=== PATIENT | male | born 1995 | race Caucasian/White ===

== ENCOUNTER 2016-08-14 07:29 | Day surgery (SDC) | payer OTHER ==
[~2016-08-14 07:29] MED LIST: ACETAMINOPHEN 500 MG TAB PO ONE; BUPIVACAINE/EPI 0.25% 30 ML SDV ONE; EPINEPHrine 30 MG/30 ML MDV ONE; OXYCODONE/APAP 5/325 TAB PO PRN; PREGABALIN 75 MG CAP PO ONE; ceFAZolin 2 GM/DEXTROSE 100 ML IV ONE
[2016-08-14] MEDS ORDERED: PREGABALIN 50 MG CAP ONE (08:22)
[2016-08-14] MEDS ORDERED: ACETAMINOPHEN 500 MG TAB ONE (08:22)
[2016-08-14] MEDS ORDERED: PROPOFOL/EMULSION 500 MG/50 ML BOTTLE IV ONE ×3 (09:21→12:30)
[2016-08-14] MEDS ORDERED: DEXAMETHASONE 4 MG/ML VIAL ONE (09:21)
[2016-08-14] MEDS ORDERED: ROCURONIUM 50 MG/5 ML VIAL ONE (09:21)
[2016-08-14] MEDS ORDERED: fentaNYL 250 MCG/5 ML INJ ONE (09:21)
[2016-08-14] MEDS ORDERED: ONDANSETRON 4 MG/2 ML VIAL ONE (09:21)
[2016-08-14] MEDS ORDERED: PROPOFOL 200 MG/20 ML VIAL ONE (09:21)
[2016-08-14] MEDS ORDERED: MIDAZOLAM 2 MG/2 ML VIAL ONE (10:41)
[2016-08-14] MEDS ORDERED: ROCURONIUM 100 MG/10 ML VIAL ONE (11:05)
[2016-08-14] MEDS ORDERED: SUGAMMADEX SODIUM 200 MG/2 ML VIAL IVP ONE (13:19)
--- NOTE | 2016-08-14 13:45 | DX ---
Intraoperative Fluoroscopy History: Intraoperative arthroscopy Fluoroscopy time = 10.5 seconds Fluoroscopy dose = 5.23 mGy Findings : 3 spot films demonstrate a needle overlying the right femoral neck followed by 2 films dem onstrating the scope overlying the lateral right femoral head. The right hip is in normal location. Impression: Right hip arthroscopy.
[2016-08-14] MEDS ORDERED: NALOXONE HCL 0.4 MG/ML INJ ONE (13:52)
[2016-08-14] MEDS ORDERED: OXYCODONE/APAP 5/325 TAB ONE (14:43)
== END 2016-08-14 16:10 | disposition home or self-care (01) ==
LOC: FSGY 07:29
PROVIDERS: ATTEND Orthopaedic Surgery Sports Medicine
PROC: 0SQ94ZZ Repair Right Hip Joint, Percutaneous Endoscopic Approach (ICD-10-PCS; principal; 2016-08-14 09:30)
DX: M25.851 Other specified joint disorders, right hip (principal); Q65.89 Other specified congenital deformities of hip; M16.11 Unilateral primary osteoarthritis, right hip; M25.551 Pain in right hip
CPT/HCPCS: 29914; 29916; 76001; C1769; C1713; J0690; J1100; J2250; J2310; J2405; J2704; J3010

== ENCOUNTER 2016-08-20 10:45 | Inpatient (IN) | payer OTHER ==
[~2016-08-20 10:45] MED LIST changes: -BUPIVACAINE/EPI 0.25% 30 ML SDV ONE; -EPINEPHrine 30 MG/30 ML MDV ONE; -OXYCODONE/APAP 5/325 TAB PO PRN; +PREGABALIN 150 MG CAP PO ONE; -PREGABALIN 75 MG CAP PO ONE; +TRANEXAMIC ACID 1,000 MG/NS 50 ML *IV IV ONE
[2016-08-20] MEDS ORDERED: LR 1,000 ML IV ONE (11:54)
[2016-08-20] MEDS ORDERED: LIDOCAINE 1% 5 ML SDV ID PRN (11:54)
[2016-08-20] MEDS ORDERED: ACETAMINOPHEN 500 MG TAB ONE (11:56)
[2016-08-20] MEDS ORDERED: CEFAZOLIN 2 GM/DEXTROSE/100 ML BAG IV ONE (11:57)
[2016-08-20] MEDS ORDERED: PREGABALIN 150 MG CAP ONE (11:57)
[2016-08-20] MEDS ORDERED: MIDAZOLAM 2 MG/2 ML VIAL ONE (13:26)
[2016-08-20] MEDS ORDERED: fentaNYL 100 MCG/2 ML INJ ONE ×3 (13:34→18:18)
[2016-08-20] MEDS ORDERED: BUPIVACAINE/EPI 0.25% 30 ML SDV ONE (13:39)
[2016-08-20] MEDS ORDERED: SKIN ADHESIVE (DERMABOND) 1 EACH TP ONE ×2 (13:39→17:00)
[2016-08-20] MEDS ORDERED: CITRATE DEXTROSE SOLN 500 ML BAG ONE ×2 (13:39→16:12)
[2016-08-20] MEDS ORDERED: PROPOFOL 200 MG/20 ML VIAL ONE ×2 (13:56→16:00)
[2016-08-20] MEDS ORDERED: NARCOTIC DRIP BAG-TOTAL ALL TYPES EP PRN (14:32)
[2016-08-20] MEDS ORDERED: NALOXONE HCL 0.4 MG/ML INJ IVP PRN (14:32)
[2016-08-20] MEDS ORDERED: ROCURONIUM 100 MG/10 ML VIAL ONE (14:57)
[2016-08-20] MEDS ORDERED: ONDANSETRON 4 MG/2 ML VIAL ONE (14:57)
[2016-08-20] MEDS ORDERED: epHEDrine SULFATE 10 MG/ML SYR ONE ×2 (14:57)
[2016-08-20] MEDS ORDERED: NEOSTIGMINE METHYLSULFATE 5 MG/5 ML SYR ONE (14:57)
[2016-08-20] MEDS ORDERED: METOCLOPRAMIDE 10 MG/2 ML VIAL ONE (14:57)
[2016-08-20] MEDS ORDERED: GLYCOPYRROLATE 0.2 MG/1 ML VIAL ONE ×2 (14:57)
[2016-08-20] MEDS ORDERED: LIDOCAINE 2% 5 ML SDV ONE ×2 (14:57)
[2016-08-20] MEDS ORDERED: diphenhydrAMINE 25 MG CAP PO PRN (15:44)
[2016-08-20] MEDS ORDERED: METOCLOPRAMIDE 10 MG/2 ML VIAL IVP PRN (15:44)
[2016-08-20] MEDS ORDERED: PHENYLEPHRINE HCL 100 MCG/ML SYR ONE (15:52)
[2016-08-20] MEDS ORDERED: ROCURONIUM 50 MG/5 ML VIAL ONE (16:01)
[2016-08-20] MEDS ORDERED: MAGNESIUM HYDROXIDE 30 ML UDCUP PO PRN (17:50)
[2016-08-20] MEDS ORDERED: ACETAMINOPHEN 325 MG TAB PO PRN (17:50)
[2016-08-20] MEDS ORDERED: ONDANSETRON DISINTEGRATING 4 MG TAB PO PRN (17:50)
[2016-08-20] MEDS ORDERED: BISACODYL 10 MG SUPP PR PRN (17:50)
[2016-08-20] MEDS ORDERED: ONDANSETRON 4 MG/2 ML VIAL IVP PRN (17:50)
[2016-08-20] MEDS ORDERED: LACTULOSE 20 GM/30 ML UDCUP PO PRN (17:50)
[2016-08-20] MEDS ORDERED: SUGAMMADEX SODIUM 200 MG/2 ML VIAL IVP ONE (18:04)
--- NOTE | 2016-08-20 18:18 | SUROPNOTE ---
LAURIE Operative Report - Surgery Surgery was performed at [facility] 08/20/16 Diagnosis: Right 1. Hip Acetabular Dysplasia Operation: Right [place] Acetabular Osteotomy (GREG) Surgeon: Memo Pickett MD Pmo Lead: Bassam CHEN Anesthetic: General + epidural Procedure: General anesthetic. Antibiotics given. Cell saver in use. Fluoroscopy. Phase 1: Position lateral, diagonal skin incision between ischial tuberosity and greater trochanter as for posterior hip approach. Blunt split of glut max fibers. Identification of fat pad overlying sciatic nerve. Exposure of sciatic nerve under fat pad, gently retracting it away-medially to ischial tuberosity. Exposure of subcotoloid fossa proximal to short rotators. Using osteotomes and under fluoroscopy, osteotomy of subcotoloid fossa to sciatic notch proximal to ischial spine. Closure of lateral cut. Patient is turned supine. Phase 2: Skin incision just distal to ASIS. Using diathermy the iliac spine was exposed and inguinal ligament + Sartorious were retracted medially, taking the LFCN with them, protecting it. Inner ilium was dissected from iliacus muscle bluntly , with a cob and swab. Dissection continued towards lateral superior ramus pubis. Using fluoroscopy an osteotomy of lateral superior ramus, just medial to tear drop, was performed with curved fish mouth osteotome. Phase 3: Osteotomy lines of the ilium were marked with diathermy as pre planned according to XR/CT and expected correction of acatabulum. 2 Shanz screws were drilled into central acetabular fragment, corresponding with planned correction angles, in order to mobilize central acetabular fragment after osteotomy is complete. Iliac osteotomy was performed with reciprocating saw and the main acetabular fragment was moved to realign weight bearing position. After confirmation of correction using fluoroscopy in AP and false profile planes, the fragment was fixed with 1 - 5.5mm full threaded screw and 1 - 6.5mm full threaded screw. Inguinal ligament and Sartorious were attached back to ASIS through drill holes. Incision was closed according to soft tissue layers. Skin was closed with subdermal Monocryl. Final fluoro shots were obtained to confirm position/correction. After surgery Darnell moved both lower limbs and had no NV motor compromise. Evaluation under anesthesia: IR at 90 degrees hip flexion prior to GREG was 40 degrees and after GREG was 20 degrees. Bleedin cc into cell-saver, 250 of blood products were returned to patient. Post op instructions: 1. Non weight bearing crutches for 4 weeks 2. Epidural analgesia for 24-48 hours 3. Continuous SCD 4. Aspirin 81 mg X1 day once Epidural is discontinued 5. Avoid hip flexion past 90 and hip External rotation. 6. PT according to my recommendations at follow up visit Kind regards, Dr. Memo Pickett .
[2016-08-20] MEDS: POLYETHYLENE GLYCOL 3350 17 GM PKT PO PRN (21:06)
[2016-08-20] MEDS: SENNOSIDES/DOCUSATE SODIUM TAB PO SCH (21:07)
[2016-08-20] MEDS: KETOROLAC 15 MG/1 ML SDV IVP SCH (21:07)
[2016-08-21] MEDS: KETOROLAC 15 MG/1 ML SDV IVP SCH ×3 (00:44→13:36)
--- NOTE | 2016-08-21 06:46 | DX ---
Fluoroscopy Greater Than One Hour Indication: Right-sided GREG (periacetabular osteotomy). Comparison: August 14, 2016, March 16, 2016. Findings: The old acetabular screws on the left side are unchanged. Osteotomy of the right is noted, with instrumentation and hardware over the right acetabulum. Total fluoroscopy time provided was 34.7 seconds. Images: 14.
[2016-08-21 06:47] LABS: ANION GAP 14 mEq/L (8-16); CALCIUM 9.5 mg/dL (8.5-10.4); CARBON DIOXIDE 28 mEq/l (22-31); CHLORIDE 99 mEq/L (97-110); CREATININE 1.1 mg/dL (0.7-1.3); GLOMERULAR FILTRATION RATE > 60; GLUCOSE 126 mg/dL (70-100); POTASSIUM 4.4 mEq/L (3.5-5.2); SODIUM 141 mEq/L (134-144)
[2016-08-21 06:55] LABS: HEMATOCRIT 43.4 % (40.0-51.0); HEMOGLOBIN 14.7 g/dL (13.7-17.5); MEAN CELL HEMOGLOBIN 32.7 pg (27.9-34.1); MEAN CELL HEMOGLOBIN CONCENTR. 33.9 g/dL (32.4-36.7); MEAN CELL VOLUME 96.7 fL (81.5-99.8); RED BLOOD CELL COUNT 4.49 10^6/uL (4.40-6.38); RED CELL DISTRIBUTION WIDTH 12.3 % (11.5-15.2)
[2016-08-21] MEDS: DC NARCS MISC SCH (07:55)
[2016-08-21] MEDS: REGARDING ANTICOAG MISC SCH (07:56)
[2016-08-21] MEDS ORDERED: LR 1,000 ML IV SCH (08:00)
[2016-08-21] MEDS: SENNOSIDES/DOCUSATE SODIUM TAB PO SCH ×2 (08:04→20:51)
--- NOTE | 2016-08-21 11:05 | SOAPPROG ---
SOAP Progress Note Assessment/Plan: Assessment: POD#1 after GREG with lumbar epidural for POPC. Patient is comfortable, he did not use bolus since surgery. Resting comfortable in bed. He threw up post eating without preceding nausea (most likely low grade post anesthesia ileus. No other complaints Plan: 08/21/16 11:01 Objective: Vital Signs Temp Pulse Resp BP Pulse Ox 36.5 C 67 14 113/53 L 100 08/21/16 07:23 08/21/16 09:48 08/21/16 09:48 08/21/16 09:48 08/21/16 09:48 Laboratory Results 08/21/16 04:15 08/21/16 04:15 08/20/16 08/21/16 08/22/16 05:59 05:59 05:59 Intake Total 1500 Output Total 1025 Balance 475 ICD10 Worksheet Patient Problems: Problems Problem Status Onset Pain, hip Acute
[2016-08-21] MEDS: HYDROmorph 10MCG/ML&BUP 0.05% in 100ML NS EP SCH (20:55)
[2016-08-22] MEDS: SENNOSIDES/DOCUSATE SODIUM TAB PO SCH ×2 (08:43→19:33)
[2016-08-22] MEDS: POLYETHYLENE GLYCOL 3350 17 GM PKT PO PRN (08:43)
[2016-08-22] MEDS: DC NARCS MISC SCH (11:32)
[2016-08-22] MEDS: REGARDING ANTICOAG MISC SCH (11:32)
[2016-08-22] MEDS: HYDROmorph 10MCG/ML&BUP 0.05% in 100ML NS EP SCH (13:31)
[2016-08-22] MEDS: oxyCODONE IR 15 MG TAB PO PRN ×3 (13:36→21:58)
[2016-08-22] MEDS: DIAZEPAM 2 MG TAB PO PRN (16:09)
[2016-08-22] MEDS: ASPIRIN EC 81 MG TAB PO SCH (16:52)
--- NOTE | 2016-08-22 18:32 | SOAPPROG ---
SOAP Progress Note Assessment/Plan: Assessment: 2nd post op day Left Periacetabular Osteotomy Plan: Transition to Oral analgesics Up with PT Pelvis Xray tomorrow Home in 1-2 days 08/22/16 18:29 Subjective: Leodan is doing quite well this evening. The epidural and cruz catheter were removed today and he appears well pain managed with oral analgesics. He denies any nausea, cp, or sob. He did vomit about 4 times since surgery without any nausea but this stopped yesterday morning. Objective: Vital Signs Temp Pulse Resp BP Pulse Ox 36.9 C 73 16 117/50 L 93 08/22/16 15:38 08/22/16 15:38 08/22/16 15:38 08/22/16 15:38 08/22/16 15:38 Laboratory Results 08/21/16 04:15 08/21/16 04:15 08/21/16 08/22/16 08/23/16 05:59 05:59 05:59 Intake Total 1500 1650 500 Output Total 1025 3775 1900 Balance 475 -2125 -1400 Well appearing in NAD Left hip: dressings clean, dry, intact No LFCN distribution numbness NVI distally full ROM of foot and ankle - Pending Discharge Pending Discharge Within 48 Hours: Yes Pending Discharge Date: 08/24/16 Pending Discharge Time: 11:00 ICD10 Worksheet Patient Problems: Problems Problem Status Onset Pain, hip Acute
--- NOTE | 2016-08-22 19:03 | SOAPPROG ---
SOAP Progress Note Assessment/Plan: Assessment: Plan: 08/22/16 19:01 Saw ger 08/21 night time. Doing well, NV intact, pain well managed. Discussed surgery and blood loss. Will monitor progress Dr Pickett Objective: Vital Signs Temp Pulse Resp BP Pulse Ox 36.9 C 73 16 117/50 L 93 08/22/16 15:38 08/22/16 15:38 08/22/16 15:38 08/22/16 15:38 08/22/16 15:38 Laboratory Results 08/21/16 04:15 08/21/16 04:15 08/21/16 08/22/16 08/23/16 05:59 05:59 05:59 Intake Total 1500 1650 500 Output Total 1025 3775 2400 Balance 108 -8942 -6818 ICD10 Worksheet Patient Problems: Problems Problem Status Onset Pain, hip Acute
[2016-08-23] MEDS: oxyCODONE IR 15 MG TAB PO PRN ×4 (04:26→17:20)
[2016-08-23 07:36] VITALS: TEMP 98.5
[2016-08-23] MEDS: ASPIRIN EC 81 MG TAB PO SCH (08:28)
[2016-08-23] MEDS: DIAZEPAM 2 MG TAB PO PRN (08:28)
[2016-08-23] MEDS: SENNOSIDES/DOCUSATE SODIUM TAB PO SCH (08:28)
[2016-08-23] MEDS: POLYETHYLENE GLYCOL 3350 17 GM PKT PO PRN (08:29)
--- NOTE | 2016-08-23 09:38 | SOAPPROG ---
SOAP Progress Note Assessment/Plan: Assessment: POD#1 after GREG with lumbar epidural for POPC. Patient is comfortable, he did not use bolus since surgery. Resting comfortable in bed. He threw up post eating without preceding nausea (most likely low grade post anesthesia ileus. No other complaints POD#2 after GREG with lumbar epidural for POPC. Patient comfortable, no pain. Epidural pump stopped around 1.30pm and PO meds given. After 5 hours of no pain complaints, epidural pump discontinued. Tip intact, insertion site clean. VSS. Plan: 08/21/16 11:01 08/23/16 09:35 Subjective: .. Objective: Vital Signs Temp Pulse Resp BP Pulse Ox 36.9 C 89 16 115/59 L 95 / 07:35 08/23/16 07:35 08/23/16 07:35 08/23/16 07:35 08/23/16 07:35 Laboratory Results 08/21/16 04:15 08/21/16 04:15 08/22/16 08/23/16 08/24/16 05:59 05:59 05:59 Intake Total 1650 800 700 Output Total 5124 0484 400 Balance -2125 -2550 300 ICD10 Worksheet Patient Problems: Problems Problem Status Onset Pain, hip Acute
[2016-08-23] MEDS: REGARDING ANTICOAG MISC SCH (10:33)
[2016-08-23 13:03] VITALS: BP 114/61; PULSE 93; RESP 18; O2SAT 97
[2016-08-24] MEDS ORDERED: NAPROXEN SODIUM 220 MG TAB PO SCH (21:00)
== END 2016-08-23 17:32 | disposition home or self-care (01) | DRG 481 ==
LOC: F3N 10:45
PROVIDERS: ADMIT Orthopaedic Surgery Sports Medicine; ATTEND Orthopaedic Surgery Sports Medicine
PROC: 30233N0 Transfusion of Autologous Red Blood Cells into Peripheral Vein, Percutaneous Approach (ICD-10-PCS; principal; 2016-08-20 13:35)
PROC: 0Q830ZZ Division of Left Pelvic Bone, Open Approach (ICD-10-PCS; principal; 2016-08-20 13:35)
PROC: 0SSB04Z Reposition Left Hip Joint with Internal Fixation Device, Open Approach (ICD-10-PCS; principal; 2016-08-20 13:35)
DX: Q65.89 Other specified congenital deformities of hip (principal); K56.7 Ileus, unspecified
CPT/HCPCS: 97161-GP; 97165-GO; C1713; J0690; J1170; J1885; J2250; J2370; J2405; J2704; J2710; J2765; J3010; J7060